=== PATIENT | female | born 1970 | race Caucasian/White ===

== ENCOUNTER 2019-02-08 08:31 | Inpatient (IN) | payer OTHER, MEDICAID ==
[~2019-02-08] VITALS: Ht 162.6 cm; Wt 81.0 kg
[2019-02-08 08:40] VITALS: Ht 162.6 cm; Wt 81.0 kg
--- NOTE | 2019-02-08 09:15 | NUR ---
AT BEDSIDE WITH ALE CORBETT TRANSLATING
--- NOTE | 2019-02-08 09:23 | NUR ---
CHAPPARONED DR BLACKMAN FOR RECTAL EXAM OF PT.
--- NOTE | 2019-02-08 09:25 | NUR ---
PT AMBULATED TO RESTROOM.
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
[2019-02-08 09:51] LABS: BASOPHIL % 0.4 % (0-2); PLATELET COUNT 303 x10^3mcL (130-400)
[2019-02-08 10:05] LABS: CALCIUM 8.9 mg/dL (8.5-10.1); CARBON DIOXIDE 25.5 mmol/L (21-32); CHLORIDE SERUM 106 mmol/L (98-107); CREATININE SERUM 0.7 mg/dL (0.6-1.0); GFR1 > 60 mL/min; GLUCOSE SERUM 110 mg/dL (74-106); POTASSIUM SERUM 3.9 mmol/L (3.5-5.1); SODIUM SERUM 142 mmol/L (136-145)
[2019-02-08 10:09] LABS: ALBUMIN 3.6 g/dL (3.4-5.0); ALKALINE PHOSPHATASE 105 U/L (46-116); ALT/SGPT 29 U/L (14-59); AST/SGOT 15 U/L (15-37); BILIRUBIN TOTAL 0.24 mg/dL (0.20-1.00); TOTAL PROTEIN, SERUM 7.9 g/dL (6.4-8.2)
--- NOTE | 2019-02-08 10:26 | NUR ---
ON NERISSA IN POSITION OF COMFORT WITH NO REQUESTS AT THIS TIME; CALL LIGHT IS WITHIN REACH.
--- NOTE | 2019-02-08 11:32 | NUR ---
AMBULATED TO BATHROOM WITH STEADY GAIT
--- NOTE | 2019-02-08 11:51 | NUR ---
ATTEMPTED TO CALL FOR REPORT FOR PT, X2 NO ANSWERS.
--- NOTE | 2019-02-08 12:08 | NUR ---
CALLED REPORT TO ALE BAKER TO MED-SURG TO ASSUME CARE OF PT
[2019-02-08 12:35] LABS: microscopic required? YES; urine erythrocyte 3+ (NEGATIVE)
[2019-02-08 12:46] LABS: MAGNESIUM 2.2 mg/dL (1.8-2.4); PHOSPHOROUS 2.6 mg/dL (2.5-4.9)
[2019-02-08 12:47] LABS: CHOLESTEROL/HDL RATIO 2.2
[2019-02-08 12:55] VITALS: BP 100/40
--- NOTE | 2019-02-08 13:05 | NUR ---
RECEIVED PT FROM ER. PT ADMIT FOR RECTAL ABSCESS, PT IS A/O X4, VERBAL RESPONSIVE, ABLE TO TELL WHAT SHE NEEDS. LUNG SOUND CLEAR BILATERAL, NO COUGH, NO SOB, PT DENY ANY CHEST PAIN OR DISCOMFORT, BOWEL SOUND PRESENT ALL 4 QUADRANTS, NO DISTENTION, NO TENDER. PEDAL PULSE PRESENT BOTH FEET, NO EDEMA, PT C/O RECTAL PAIN BUT THERE IS NO ERYTHEMA OR SWELLING AT RECTAL SIDE, BUT PT C/O TENDER/ AND PAIN WHILE TOUCH. IV AT RIGHT AC, NO LEAKING, NO INFILTRATION. ALL ADLS ASSIST, ALL NEED MET, CALL LIGHT IN REACH, WILL CONTINUE TO MONITOR.
--- NOTE | 2019-02-08 13:10 | NUR ---
RECEIVED FR ER OLIVE WOLFF ACCOMPANIED BY EMT.AAO X4.CHIEF C/O RECTAL PAIN.AAO X4.C/O MILD PAIN AT 3/10 PAIN SCALE.NO OPEN WOUND NOTED.LUNGS CLEAR.PT NONE TELE.IV SALINE LOCKED.ADMISSION ASSESSMENT AND HX COMPLETED BY SHARMIN,RESOURCE NURSE.CALL LIGHT WITHIN REACH.INSTRUCTED TO CALL FOR ANY PAIN/DISCOMFORT.WILL CONTIUE TO MONITOR PT.
[2019-02-08 13:14] LABS: T3 TOTAL 0.77 ng/mL
[2019-02-08 13:15] LABS: FREE T4 1.05 ng/dL (0.76-1.46); FREE THYROXINE INDEX 2.4 ug/dL (1.4-4.5); T4(THYROXINE) 6.8 ug/dL (4.7-13.3)
--- NOTE | 2019-02-08 16:00 | NUR ---
UNABLE TO DO WOUND CULTURE.NO OPEN WOUND.PLEASE REFER TO PHOTO TAKEN
--- NOTE | 2019-02-08 16:23 | NUR ---
GAVE TORADOL 15 MG IVP ORDERED PRN FOR C/O RECTAL PAIN AT 7/10 PAIN SCALE.WILL CONTINUE TO MONITOR.
[2019-02-08 16:42] VITALS: BP 98/63
--- NOTE | 2019-02-08 16:53 | NUR ---
RECHECKED PAIN LEVEL.CLAIMS IS AT 2/10 PAIN SCALE.
--- NOTE | 2019-02-08 19:11 | NUR ---
NO SIGNIFICANT CHANGE NOTED.WILL ENDORSE TO NEXT SHIFT.
--- NOTE | 2019-02-08 19:49 | NUR ---
SHIFT REASSESSMENT DONE.PATIENT ALERT AND ORIENTED,MAINLY TURKISH,NEEDS ANTICIPATED.BREATHING EASY.AMBULATORY.RAC HEPLOCK INTACT.MEDSURG.RECTAL TENDERNESS,NO OPEN AREA,FOR I AND IN AM.BEDSIDE.VOIDING.FAMILY VISITING,VERY SUPPORTIVE.CALL LIGHT IN REACH.
[2019-02-08 21:02] VITALS: BP 106/56
--- NOTE | 2019-02-08 22:12 | NUR ---
PATIENT ALL PM MEDS GIVEN,NORCO GIVEN,PAIN SHOT NOT DUE TIL [phone].PATIENT MAINLY POLISH,ENERGY CONSULTANT BRONWYN HELPED.CALL LIGHT IN REACH.
--- NOTE | 2019-02-09 04:19 | NUR ---
4 AM ATB DUE AND INFUSING WITHOUT ANY INCIDENT.ICV SITE SECURED.CHECKED AT INTERVALS.PATIENT REMAINS NPO,BEDSIDE PROCEDURE I AND D.ALL STUFF GATHERED WHAT WE NEED,JUAN MADE AWARE OF MED/ANESTHESIA NEEDED IN CASE IT WILL BE EARLY,WAS NOTIFIED VERBALLY BY JIMCHARGE NURSE.
[2019-02-09 06:19] VITALS: BP 104/59
--- NOTE | 2019-02-09 06:20 | NUR ---
PATIENT REMAINS NPO,AM MED PRN PAIN SHOT GIVEN.ALL SUPPLY ALMOST COMPLETE.ANESTHETIC ALREADY ORDERED,PHARMACY WILL BRING IT.
[2019-02-09 07:20] LABS: BASOPHIL % 0.2 % (0-2); PLATELET COUNT 272 x10^3mcL (130-400); RED CELL DISTRIBUTION WIDTH 13.8 % (11.5-14.5)
--- NOTE | 2019-02-09 07:30 | NUR ---
RECEIVED PT IN BED, DENIES PERERA/N/V, DENIES CP/PRESSURE, VERBAL, WOLOF, CALM AND COPPERATIVE, NO FACIAL DROOP/SLURRED SPEECH, PERRLA, NO REDNESS/DRAINAGE, RESP EVEN AND NON-LABORED, CHEST RISE SYMMETRICALLY, IN NO ACUTE DISTRESS, ABLE TO MOVE ALL EXTREMITIES, AMBULATORY, BS ACTIVE X 4, ABD FLAT AND NON-TENDER TO TOUCH, PALP PULSE, CAP REFILL < 3 SECS, NPO PRIOR I&D PROCEDURE, PT IN STABLE CONDITION, PT ASKED FOR PAD DUE TO CURRENT ON MENSTRUATION, PAD GIVEN, ASSSTED PT TO BATHROOM, BACK TO BED, PRE-OP PREP DONE, TAKEN WELL, INFORMED CONSENT SIGNED, ALL NEEDS MET, JAMEEL LIGHT IN REACH, BED AT LOW POSITION, RAILS X2, CONTINUE TO MONITOR
[2019-02-09 07:40] LABS: CALCIUM 7.9 mg/dL (8.5-10.1); CARBON DIOXIDE 25.3 mmol/L (21-32); CHLORIDE SERUM 108 mmol/L (98-107); CREATININE SERUM 0.6 mg/dL (0.6-1.0); GFR1 > 60 mL/min; GLUCOSE SERUM 93 mg/dL (74-106); POTASSIUM SERUM 3.6 mmol/L (3.5-5.1); SODIUM SERUM 142 mmol/L (136-145)
--- NOTE | 2019-02-09 07:46 | NUR ---
CAME AND TALK TO PT.RESEARCH HOME ECONOMIST ALE BARNHART TRANSLATED FOR .VERBALIZES UNDERSTANDING.SIGNED CONSENT FOR I&D OF ABSCESS.PRE-OP CHECKLIST COMPLETED.GAVE REPORT TO Keena BRUMFIELDNURSE.
--- NOTE | 2019-02-09 08:46 | NUR ---
RAFAEL BATH GIVEN TO PT.
--- NOTE | 2019-02-09 08:53 | NUR ---
PT WENT DOWN IN OR VIA [employer] SystemsFAHAD ACCOMPANIED BY GIDEON. PT'S SISTER AT ALSO WITH PATIENT.
[2019-02-09 08:55] VITALS: BP 102/49
--- NOTE | 2019-02-09 10:56 | NUR ---
PT BACK FROM I&D SURGERY, IN STABLE CONDITION, IN NO RESP DISTRESS/SOB NOTED, REPORTED NO PAIN/DISCOMFORT AT THIS TIME, FAMILY AT BEDSIDE, DRESSING INTACT AND CLEAN, CALL LIGHT IN REACH, BED AT LOW POSITION, ALL NEEDS MET, RAILS X 2, CONTINUE TO MONITOR
--- NOTE | 2019-02-09 11:39 | NUR ---
I HAVE REVIEWED THE DATA COLLECTION BY ALE RODRIGUEZ (NAME):KRISTY RODRIGUEZ ENTERED ON (DATE/TIME):02/09/19 @ 8683 I CONCUR WITH THE DATA AND ANY EXCEPTIONS OR COMMENTS ARE LISTED BELOW:
--- NOTE | 2019-02-09 12:02 | NUR ---
PT SLEEPING IN BED, IN NO ACUTE DISTRESS, FAMILY AT BEDSIDE, ALL NEEDS MET, DRESSING CLEAN AND INTACT, SAFETY PRECAUTION PROTOCOL FOLLOWED, CONTINUE TO MONITOR
--- NOTE | 2019-02-09 12:04 | NUR ---
PT RESTING IN BED, DENIES PAIN/DISCOMFORT AT THIS TIME, AT BEDSIDE, IN NO ACUTE DISTRESS, ASSISTED TO BATHROOM, BACK TO BED, ALL NEEDS MET, SAFETY PROTOCOL FOLLOWED, CONTINUE TO MONITOR
--- NOTE | 2019-02-09 14:38 | NUR ---
PT RESTING IN BED, IN NO ACUTE DISTRESS, SAFETY PRECAUTION FOLLOWED, REPLACED ICE WATER, ALL NEEDS MET, CONTINUE TO MONITOR AND F/U
[2019-02-09 17:02] VITALS: BP 104/52
--- NOTE | 2019-02-09 17:09 | NUR ---
PT RESTING IN BED, CALM AND RELAX, IN NO ACUTE DISTRESS, REPORTED PAIN TO I&D INCISDION SITE, 02/17, DRESSING CLEAN AND INTACT, NO S/S OF INFECTION NOTED AT THIS TIME, PAIN MED GIVEN PER MD ORDER VIA EMAR, TAKEN WELL, PT EDUCATED S/E OF MEDICATION, VERBALLY UNDERSTANDING, NO ADVERSED SIDE EFFECT NOTED AT THIS TIME, SAFETY PRECAUTION PROTOCOL FOLLOWED, CONTINUE TO MONITOR
--- NOTE | 2019-02-09 18:07 | NUR ---
PT RESTING IN BED, DENIES PAIN/DISCOMFORT AT THIS TIME, IN NO ACUTE DISTRESS, RESP EVEN AND NON-LABORED, CHEST RISE SYMMETRICALLY, DENIES CP/PRESSURE, DENIES N/V, REPORTED PASSING GAS, AMBULATORY, ASSITED TO AMBULATE BY NURSING STAFFS, PT ON PERIOD, PAD CHANGED, NO S/S OF INFECTION AT INCISION SITE, ALL NEEDS MET, CALL LIGHT IN REACH, BED AT LOW POSITION, RAILS X 2, WILL ENDORSE TO NEXT ONCOMING RN
--- NOTE | 2019-02-09 19:40 | NUR ---
REC'D PT FROM DAY NURSE. FAMILY AT BEDSIDE. PT RESTING IN BED. AAOX4, SPEECH CLEAR, FOLLOWS COMMANDS. MED SURG, NO TELE. DENIES CP, DIZZINESS, OR PALPITATIONS. DENIES RESP DISTRESS OR SOB. BREATHING EVEN/UNLABORED ON RA. ABD SOFT/ROUND. DENIES ABD PAIN, TENDERNESS, OR N/V. PASSING GAS. VOIDING FREELY. MENSTRUATING- SMALL AMT OF SANGUINEOUS DISCHARGE. S/P I&D R PERIRECTAL AREA POD #0. PACKING IN PLACE. NO S/SX OF INFECTION. PT DENIES PAIN. MILD GENERALIZED WEAKNESS. AMBULATORY. IV TO RAC FLUSHED AND PATENT, SITE WNL. INFORMED OF PLAN FOR SITZ BATH TONIGHT. PT VERBALIZED UNDERSTANDING. CALL LIGHT WITHIN REACH, BED AT LOWEST POSITION. WILL CONTINUE TO MONITOR.
--- NOTE | 2019-02-09 20:00 | NUR ---
PT WALKING AROUND THE UNIT ACCOMPANIED BY FAMILY MEMBER. STEADY GAIT.
[2019-02-09 21:10] VITALS: BP 106/55
--- NOTE | 2019-02-09 21:53 | NUR ---
PT SITTING ON THE TOILET FOR SITZ BATH. NO COMPLAINTS AT THIS TIME.
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
--- NOTE | 2019-02-10 00:43 | NUR ---
PT RESTING IN BED WITH EYES CLOSED. NO SIGNS OF DISTRESS NOTED. BREATHING EVEN/UNLABORED ON RA. CALL LIGHT WITHIN REACH, BED AT LOWEST POSITION. WILL CONTINUE TO MONITOR.
--- NOTE | 2019-02-10 06:07 | NUR ---
PT RESTING IN BED WITH EYES CLOSED. AWAKENS WITH VERBAL STIMULI. NO SIGNS OF DISTRESS NOTED. BREATHING EVEN/UNLABORED ON RA. C/O WOUND PAIN 12/18. TYLENOL GIVEN PER REQUEST. PACKING TO R PERIRECTAL AREA IN PLACE. TO BE REMOVED AFTER AM SITZ BATH. NO BM BUT PASSING GAS. PT HAS BEEN AMBULATING. CALL LIGHT WITHIN REACH, BED AT LOWEST POSITION. WILL ENDORSE TO DAY NURSE.
[2019-02-10 06:14] VITALS: BP 115/62
[2019-02-10 06:37] LABS: BASOPHIL % 0.4 % (0-2); PLATELET COUNT 279 x10^3mcL (130-400); RED CELL DISTRIBUTION WIDTH 13.6 % (11.5-14.5)
[2019-02-10 07:00] LABS: CALCIUM 8.4 mg/dL (8.5-10.1); CARBON DIOXIDE 26.9 mmol/L (21-32); CHLORIDE SERUM 107 mmol/L (98-107); CREATININE SERUM 0.6 mg/dL (0.6-1.0); GFR1 > 60 mL/min; GLUCOSE SERUM 97 mg/dL (74-106); MAGNESIUM 2.1 mg/dL (1.8-2.4); POTASSIUM SERUM 3.5 mmol/L (3.5-5.1); SODIUM SERUM 143 mmol/L (136-145)
--- NOTE | 2019-02-10 07:30 | NUR ---
PT ENDORSE TO ME THIS MORNING, SITTING UP IN BED AA/O X4/ HUNGARIAN SPK, BREATHING EVEN AND UNLABORED ON RA, NO ACUTE RESP DISTRESS OR SOB NOTED. MEDSURG/ DENIES ANY CP OR PRESSURE. VOIDS FREELY, BOWEL SOUNDS ACTIVE IN ALL FOUR QUADS, PASSING GAS, LAST BM 02/08. SP I&D PERIRECTAL AREA, PACKING INPLACE, NO S/SX OF INFECTION. IV TO THE RAC INTACT AND PATIENT/NO REDNESS OR SWELLING NOTED/ HEPLOCKED. CALL LIGHT IN REACH. BED IN LOW POSITION, WILL CONTINUE TO MONITOR.
[2019-02-10 09:13] VITALS: BP 110/49
--- NOTE | 2019-02-10 13:45 | NUR ---
PT TOLERATED 100% OF LUNCH, DENIES ANY N/V NOTED.
--- NOTE | 2019-02-10 17:52 | NUR ---
SITZ BATH COMPLETED, PT TOLERATED REMOVAL OF PACKING WELL, WILL MEDICATED PER EMAR FOR DISCOMFORT.
[2019-02-10 18:15] VITALS: BP 115/67
--- NOTE | 2019-02-10 18:55 | NUR ---
NO ACUTE CHANGES AT THIS TIME, NO ACUTE RESP DISTRESS OR SOB NOTED. PT STATED PAIN MED ALLEVIATED PERIRECTAL PAIN. IV TO THE RAC INTACT AND PATENT, NO REDNESS OR SWELLING NOTED. WILL ENDORSE TO INCOMING RN.
--- NOTE | 2019-02-10 19:30 | NUR ---
AOX4. MED SURG. LUNGS CLEAR ON RA. PULSES PALPABLE. NO EDEMA. BOWEL SOUNDS ACTIVE. VOIDS FREELY. AMBULATORY. PERIRECTAL ABSESS S/P I&D TO R INNER BUTTOCK, NO REDNESS, MINIMAL SEROSANGINOUS DRAINAGE, NON PURULENT. ABD PAD IN PLACE. C/O PAIN 08/20, STATES TOLERABLE. SL TO RAC, PATENT. BED IN LOWEST POSITION, 2 SIDE RAILS UP, CALL LIGHT IN REACH. INSTRUCTED TO CALL FOR ASSISTANCE.
[2019-02-10 20:04] VITALS: BP 102/63
--- NOTE | 2019-02-11 02:01 | NUR ---
RESTING IN BED WITH EYES CLOSED. BREATHING E/U. NO ACUTE DISTRESS NOTED. WILL CONTINUE TO MONITOR.
[2019-02-11 05:06] VITALS: BP 96/59
--- NOTE | 2019-02-11 06:15 | NUR ---
NO ACUTE CHANGES. WILL ENDORSE TO ONCOMING RN.
[2019-02-11 06:33] LABS: BASOPHIL % 0.7 % (0-2); PLATELET COUNT 315 x10^3mcL (130-400); RED CELL DISTRIBUTION WIDTH 12.9 % (11.5-14.5)
[2019-02-11 06:39] LABS: CALCIUM 8.4 mg/dL (8.5-10.1); CHLORIDE SERUM 108 mmol/L (98-107); CREATININE SERUM 0.7 mg/dL (0.6-1.0); GFR1 > 60 mL/min; GLUCOSE SERUM 107 mg/dL (74-106); POTASSIUM SERUM 3.7 mmol/L (3.5-5.1); SODIUM SERUM 143 mmol/L (136-145)
--- NOTE | 2019-02-11 07:30 | NUR ---
PT ENDORSE TO ME THIS MORNING, SITTING UP IN BED AA/O X4, BREATHING EVEN AND UNLABORED ON RA, NO ACUTE RESP DISTRESS OR SOB NOTED. MEDSURG, DENIES ANY CP OR PRESSURE. BOWEL SOUNDS ACTIVE IN ALL FOUR QUADS, DENIES ANY ABD PAIN OR DISCOMFORT. VOIDS FREELY, AMB. R PERIRECTAL WOUND INTACT, NO NEW DRAINAGE NOTED ON ABD PAD, DENIES ANY DISCOMFORT. IV TO THE RAC INTACT AND PATENT/ HEPLOCKED. CALL LIGHT IN REACH/ WILL CONTINUE TO MONITOR.
[2019-02-11 08:01] VITALS: BP 123/83
[2019-02-11] MEDS ORDERED: LEVAQUIN750 MG PO (12:03)
[2019-02-11] MEDS ORDERED: FLA500 PO (12:03)
[2019-02-11] MEDS ORDERED: METAMUCIL FIBE3.4 GM GT (12:04)
[2019-02-11] MEDS ORDERED: LIDOCAINE AND P1 CRE TOP (12:05)
[2019-02-11 12:18] VITALS: BP 103/58
--- NOTE | 2019-02-11 13:45 | NUR ---
PT TOLERATED 100% OF HER LUNCH. DENIES ANY DISCOMFORT AT THIS TIME. FAMILY AT BEDSIDE. WILL CONTINUE TO MONITOR.
[2019-02-11 14:18] VITALS: BP 103/58
--- NOTE | 2019-02-11 15:18 | NUR ---
EXPLAINED DISCHARGE INSTRUCTIONS, NEW AND CONTINUED MEDS AND FOLLOW UP APPT PT MUST MAKE WITH CLINIC, PT AGREED AND AND SIGNED ALL DISCHARGE PAPER WORK. REMOVED IV TO THE RAC / TOLERATED WELL, NO REDNESS OR SWELLING NOTED/ CATHETER TIP INTACT. PT WILL CALL NURSING STATION ONCE SHE IS DRESSED.
[2019-02-11 15:36] VITALS: BP 112/78
== END 2019-02-11 15:44 | disposition home or self-care (01) | DRG 710 ==
LOC: ED 08:31 → MU 11:34
PROVIDERS: Emergency Medicine; Internal Medicine; Surgery; ADMIT Internal Medicine
PROC: 0D9Q0ZZ Drainage of Anus, Open Approach (ICD-10-PCS; 2019-02-09)
PROC: 0J990ZZ Drainage of Buttock Subcutaneous Tissue and Fascia, Open Approach (ICD-10-PCS; principal; 2019-02-09 09:30)
DX: A41.9 Sepsis, unspecified organism (principal); K61.2 Anorectal abscess; L02.31 Cutaneous abscess of buttock; D64.9 Anemia, unspecified; B96.89 Other specified bacterial agents as the cause of diseases classified elsewhere; E66.9 Obesity, unspecified; Z68.30 Body mass index [BMI] 30.0-30.9, adult
CPT/HCPCS: 84439; G0378; J1885; J1956; J2001; J2250; J2405; J2543; J2704; J3490; J7030; J7040; J7120; Q0092

== ENCOUNTER 2020-07-27 16:57 | Emergency (ER) | payer OTHER, MEDICAID ==
[~2020-07-27] VITALS: Ht 160 cm; Wt 76.2 kg
[~2020-07-27 16:57] MED LIST: FLA500 PO; LEVAQUIN750 MG PO; LIDOCAINE AND P1 CRE TOP; METAMUCIL FIBE3.4 GM GT
[2020-07-27 17:19] VITALS: Ht 160 cm; Wt 76.2 kg
[2020-07-27 20:01] LABS: PLATELET COUNT 385 x10^3mcL (179-408); RED CELL DISTRIBUTION WIDTH 14.1 % (12.3-17.7)
[2020-07-27 20:44] LABS: CALCIUM 8.9 mg/dL (8.5-10.1); CARBON DIOXIDE 30.2 mmol/L (21-32); CHLORIDE SERUM 104 mmol/L (98-107); CREATININE SERUM 0.7 mg/dL (0.6-1.0); GFR1 > 60 mL/min; GLUCOSE SERUM 93 mg/dL (74-106); POTASSIUM SERUM 4.1 mmol/L (3.5-5.1); SODIUM SERUM 141 mmol/L (136-145)
[2020-07-27 20:54] LABS: ALBUMIN 3.6 g/dL (3.4-5.0); ALKALINE PHOSPHATASE 86 U/L (46-116); ALT/SGPT 29 U/L (14-59); AST/SGOT 15 U/L (15-37); BILIRUBIN TOTAL 0.24 mg/dL (0.20-1.00); TOTAL PROTEIN, SERUM 7.7 g/dL (6.4-8.2)
[2020-07-27 21:14] VITALS: BP 101/78
== END 2020-07-27 21:14 | disposition home or self-care (01) ==
LOC: ED 16:57
DX: Z00.01 Encounter for general adult medical examination with abnormal findings (principal); R79.1 Abnormal coagulation profile
CPT/HCPCS: 85378